=== PATIENT | male | born 1945 | race Caucasian/White ===

== ENCOUNTER → 2017-02-28 | Outpatient (CLI) | payer MEDICARE, BC ==
[~2017-02-28] MED LIST: FLEXERIL10 MG PO; MEDROL 4MG. DOSE4 MG PO; VICODIN 5/500 T1 TAB PO
== END ==
LOC: LAB 16:26
DX: E53.8 Deficiency of other specified B group vitamins (principal); R73.9 Hyperglycemia, unspecified